=== PATIENT | male | born 1990 | race Caucasian/White ===

== ENCOUNTER 2017-09-13 14:08 | Emergency (ER) | payer OTHER, BC | END 2017-09-13 14:36 | disposition home or self-care (01) | LOC: E/R 14:08 | DX: Z76.0 Encounter for issue of repeat prescription (principal) | CPT/HCPCS: 99281; Z7502 ==

== ENCOUNTER 2017-09-28 12:57 | Emergency (ER) | payer OTHER | END 2017-09-28 13:41 | disposition home or self-care (01) | LOC: E/R 13:41 | DX: Z76.0 Encounter for issue of repeat prescription (principal) | CPT/HCPCS: 99281; Z7502 ==